=== PATIENT | male | born 2000 | race Caucasian/White ===

== ENCOUNTER 2021-11-10 12:16 | Inpatient (IN) ==
[2021-11-10 14:51] LABS: TSH Ultra Thyroid Stim Horm 3.07 mcIU/mL (0.34-5.60)
[2021-11-10 15:05] LABS: Albumin 4.7 g/dL (3.2-5.2); Albumin/Globulin Ratio 1.6 (1-3); Calcium 9.5 mg/dL (8.6-10.3); Globulin 2.9 g/dL (2-4); Potassium 4.1 mmol/L (3.5-5.0); Total Bilirubin 0.9 mg/dL (0.2-1.0); Total Protein 7.6 g/dL (6.4-8.9); eGFR CKD-EPI 129.4 (>60)
[2021-11-10 19:41] LABS: Urine Appearance Clear; Urine Bilirubin Negative (Negative); Urine Blood Negative (Negative); Urine Color Straw; Urine Glucose Negative (Negative); Urine Ketones Negative (Negative); Urine Nitrite Negative (Negative); Urine Protein Negative (Negative); Urine Specific Gravity 1.004 (1.002-1.030); Urine Urobilinogen Negative (Negative)
[2021-11-10 19:58] LABS: Urine Benzodiazepine Screen None Detected (None Detect); Urine Cannabinoids Screen Presumptive Positive (None Detect); Urine Opiates Screen None Detected (None Detect)
[2021-11-10 21:20] LABS: ABS Basophils 0.1 10^3/ul (0-0.2); ABS Eosinophils 0.2 10^3/ul (0-0.6); ABS Lymphocytes 1.8 10^3/ul (1.0-4.8); ABS Monocytes 0.6 10^3/ul (0-0.8); ABS Neutrophils 4.4 10^3/ul (1.5-7.7); Eosinophil % 2.5 %; Hematocrit 44 % (42-52); Hemoglobin 14.7 g/dL (14.0-18.0); Lymphocyte % 25.3 %; Mean Corpuscular HGB Conc 34 g/dL (31-36); Mean Corpuscular Hemoglobin 28 pg (27-31); Mean Corpuscular Volume 84 fL (80-94); Mean Platelet Volume 7.5 fL (7.4-10.4); Nucleated Red Blood Cells % 0.1; Platelet Count 203 10^3/uL (150-450); Red Blood Count 5.21 10^6 /uL (4.18-5.48); Red Cell Distribution Width 13 % (10-15)
[2021-11-10] MEDS ORDERED: Al Hydrox/Mg Hydrox/Simet LIQ 30 ML UDC PO PRN (21:49)
[2021-11-11] MEDS: Vitamin THERAPEUTIC TAB PO SCH (07:56)
[2021-11-11] MEDS: CMCS: Atomoxetine 40 mg CAP (NF) PO SCH (12:14)
[2021-11-12 08:38] LABS: HDL Cholesterol 29.9 mg/dL
[2021-11-12] MEDS: Vitamin THERAPEUTIC TAB PO SCH (09:11)
[2021-11-12] MEDS: CMCS: Atomoxetine 40 mg CAP (NF) PO SCH (09:11)
[2021-11-13] MEDS: Vitamin THERAPEUTIC TAB PO SCH (07:52)
[2021-11-13] MEDS: CMCS: Atomoxetine 40 mg CAP (NF) PO SCH (07:53)
[2021-11-13 08:04] VITALS: BP 114/66
[2021-11-13] MEDS ORDERED: ARIPiprazole Maintena (NF) 400 MG SYRINGE IM SCH (11:00)
== END 2021-11-13 15:09 | disposition home or self-care (01) | DRG 885 ==
LOC: ED 12:16 → BSU 21:29
PROVIDERS: ADMIT Psychiatry & Neurology Psychiatry; ATTEND Psychiatry & Neurology Psychiatry